=== PATIENT | female | born 1970 | race Caucasian/White ===

== ENCOUNTER 2022-03-10 03:54 | Inpatient (IN) | payer BC ==
[~2022-03-10] VITALS: Ht 157.5 cm; Wt 90.7 kg
--- NOTE | 2022-03-10 04:20 | NUR ---
Dr. Burrows at bedside. MSE in progress.
[2022-03-10] MEDS ORDERED: ONDANSETRON 4 MG/2 ML VIAL ONE ×3 (04:41→09:46)
[2022-03-10] MEDS ORDERED: HYDROMORPHONE 1 MG/1 ML DISP.SYRIN ONE ×2 (04:42→07:53)
[2022-03-10] MEDS ORDERED: HYDROMORPHONE 1 MG/1 ML DISP.SYRIN IV ONE ×2 (04:45→07:15)
[2022-03-10] MEDS ORDERED: IV NORMAL SALINE 1000 ML BAG IV ONE (04:45)
[2022-03-10] MEDS ORDERED: ONDANSETRON 4 MG/2 ML VIAL IV ONE ×2 (04:45→09:45)
[2022-03-10 05:10] LABS: HEMATOCRIT 28.9 % (31.2-41.9); MEAN CORPUSCULAR HEMOGLOBIN 28.7 uug (24.7-32.8); MEAN CORPUSCULAR VOLUME 88.8 fL (75.5-95.3); PLATELET COUNT (AUTO) 321 K/uL (179-408)
[2022-03-10 05:12] LABS: CREATININE 1.4 mg/dL (0.6-1.3); POTASSIUM 4.3 mmol/L (3.5-5.1)
[2022-03-10 05:19] LABS: BILIRUBIN,DIRECT 0.5 mg/dL (0.0-0.2); BILIRUBIN,TOTAL 1.1 mg/dL (0.2-1.0); TOTAL PROTEIN, SERUM 7.9 g/dL (6.4-8.2)
[2022-03-10] MEDS ORDERED: IOHEXOL 300MG/ML 100 ML INFUS..BTL ONE (05:36)
[2022-03-10] MEDS ORDERED: IV NORMAL SALINE 0 ML IV ONE (05:36)
[2022-03-10] MEDS ORDERED: SWABABLE VALVE TRANSFER SET EA MC ONE (05:36)
[2022-03-10] MEDS ORDERED: PIPERACILLIN SODIUM/TAZOBACTAM 3.375 G in IV DEXTROSE 5% 50 ML IV ONE (06:15)
[2022-03-10] MEDS ORDERED: PIPERACILLIN/TAZOBACTAM/D5W 50 ML IV ONE ×2 (06:19→14:45)
--- NOTE | 2022-03-10 07:05 | NUR ---
Report given to Haven HAIDER.
[2022-03-10 08:31] LABS: IRON, SERUM 13 ug/dL (50-175)
[2022-03-10] MEDS ORDERED: ACETAMINOPHEN 325 MG TABLET PO PRN (10:00)
[2022-03-10] MEDS ORDERED: MAGNESIUM HYDROXIDE 30 ML LIQUID UDC PO PRN (10:00)
[2022-03-10] MEDS ORDERED: ONDANSETRON 4 MG/2 ML VIAL IV PRN (10:00)
[2022-03-10] MEDS ORDERED: HYDROMORPHONE 2 MG/1 ML DISP.SYRIN IV PRN (10:00)
[2022-03-10] MEDS ORDERED: IV NS 1000 ML 1,000 ML IV PRN (10:00)
[2022-03-10] MEDS ORDERED: REMEDY ESSENTIAL ZINC PASTE 113 GM TP PRN (10:00)
[2022-03-10] MEDS ORDERED: IV NS 1000 ML 1,000 ML IV ONE (11:15)
[2022-03-10] MEDS ORDERED: PIPERACILLIN SODIUM/TAZOBACTAM 3.375 G in IV DEXTROSE 5% 50 ML IV SCH (12:00)
[2022-03-10 14:07] LABS: *BLOOD, URINE NEGATIVE (NEGATIVE); *CLARITY,URINE CLEAR (CLEAR); *COLOR,URINE YELLOW (YELLOW); *KETONES,URINE 1+ (NEGATIVE); *UROBILINOGEN,URINE 0.2 E.U./dl (NORMAL); LEUKOCYTE ESTERASE ,URINE 1+ (NEGATIVE); NITRITE, URINE NEGATIVE (NEGATIVE); PH,URINE 5.5 (5.0-8.0); UGLUCOSE NEGATIVE (NEGATIVE)
[2022-03-10 14:09] LABS: *BILIRUBIN,URIN 1+ (NEGATIVE)
[2022-03-10 14:31] LABS: BACTERIA,URINE FEW /HPF (NONE SEEN)
[2022-03-10 14:32] LABS: RBC,URINE 0-3 /HPF (0-3); SQUAMOUS EPITHELIAL CELL,UR MODERATE /HPF (NONE SEEN)
[2022-03-10 14:33] LABS: URIC ACID CRYSTALS,URINE MODERATE /HPF (NONE SEEN)
[2022-03-10] MEDS: PIPERACILLIN SODIUM/TAZOBACTAM 3.375 G in IV DEXTROSE 5% 100 ML IV SCH ×2 (14:47→21:15)
--- NOTE | 2022-03-10 17:49 | NUR ---
Report was given to Roxana at 15:45 and patient was escorted up to room accompanied by her mother. Patient alert and orientated, able to verablized needs and no complained of pain at time of transfer.
[2022-03-10] MEDS: HYDROMORPHONE 2 MG/1 ML DISP.SYRIN IV PRN (19:28)
[2022-03-10 20:53] VITALS: BP 110/60
[2022-03-11] VITALS (8 sets, daily range): BP systolic 90–131; BP diastolic 42–65
[2022-03-11] MEDS: HYDROMORPHONE 2 MG/1 ML DISP.SYRIN IV PRN (01:31)
[2022-03-11] MEDS: PIPERACILLIN SODIUM/TAZOBACTAM 3.375 G in IV DEXTROSE 5% 100 ML IV SCH ×3 (05:06→21:35)
[2022-03-11] MEDS ORDERED: HYDROMORPHONE 1 MG/1 ML DISP.SYRIN IV PRN (06:30)
[2022-03-11 07:31] LABS: HEMATOCRIT 27.1 % (31.2-41.9); MEAN CORPUSCULAR VOLUME 89.4 fL (75.5-95.3); PLATELET COUNT (AUTO) 348 K/uL (179-408)
[2022-03-11] MEDS ORDERED: BUPIVACAINE/EPI PF 0.25% 10 ML VIAL IJ ONE ×2 (07:44→14:58)
[2022-03-11] MEDS ORDERED: LIDOCAINE HCL 1% 20 ML VIAL ONE (07:45)
[2022-03-11] MEDS ORDERED: BACITRACIN ZINC OINT 15 GM TUBE ONE (07:46)
[2022-03-11] MEDS ORDERED: FENTANYL CITRATE 100 MCG/2 ML AMPUL ONE (07:54)
[2022-03-11] MEDS ORDERED: MIDAZOLAM HCL 2 MG/2 ML VIAL ONE (07:54)
[2022-03-11] MEDS ORDERED: HYDROMORPHONE 2 MG/1 ML DISP.SYRIN ONE (07:54)
[2022-03-11 07:55] LABS: BILIRUBIN,TOTAL 0.7 mg/dL (0.2-1.0); CREATININE 1.7 mg/dL (0.6-1.3); MAGNESIUM 1.9 mg/dL (1.8-2.4); POTASSIUM 4.6 mmol/L (3.5-5.1); TOTAL PROTEIN, SERUM 7.6 g/dL (6.4-8.2)
[2022-03-11] MEDS ORDERED: ROCURONIUM BROMIDE 50 MG/5 ML VIAL ONE (07:55)
[2022-03-11] MEDS: PANTOPRAZOLE SODIUM 40 MG VIAL IV SCH (09:00)
--- NOTE | 2022-03-11 10:02 | NUR ---
down for surgery 0813
[2022-03-11] MEDS ORDERED: SEVOFLURANE 250 ML BOTTLE IH ONE (10:36)
[2022-03-11] MEDS ORDERED: METOCLOPRAMIDE HCL 10 MG/2 ML VIAL IV ONE (10:36)
[2022-03-11] MEDS ORDERED: PROPOFOL 200 MG/20 ML BOTTLE IV ONE (10:36)
[2022-03-11] MEDS ORDERED: NEOSTIGMINE METHYLSULFATE 10 MG/10 ML VIAL IM ONE (10:36)
[2022-03-11] MEDS ORDERED: CEFAZOLIN 1 G VIAL IM ONE (10:36)
[2022-03-11] MEDS ORDERED: ONDANSETRON 4 MG/2 ML VIAL IV ONE (10:36)
[2022-03-11] MEDS ORDERED: GLYCOPYRROLATE 0.2 MG/ML VIAL IJ ONE (10:36)
[2022-03-11] MEDS ORDERED: LIDOCAINE-MPF 2% 5 ML VIAL IJ ONE (10:36)
[2022-03-11] MEDS ORDERED: DEXAMETHASONE SOD PHOSPHATE 4 MG INJ IV ONE (10:36)
--- NOTE | 2022-03-11 12:01 | NUR ---
returned back from surgery no c/o pain rates pain 2/10 at this time. GAEL drain and drsg in place with min serous drainage 10ml at this time. laproscopic inserstion site at umbilical covered with bandaid. resting quietly with family at bedside
[2022-03-11] MEDS ORDERED: IV LACTATED RINGERS SOLUTION 1,000 ML IV PRN (12:45)
[2022-03-11] MEDS ORDERED: SIMV5TAB59 PO (13:01)
[2022-03-11] MEDS ORDERED: SPIR50TA5 PO (13:01)
[2022-03-11] MEDS ORDERED: ANAS1TAB50 PO (13:01)
[2022-03-11] MEDS ORDERED: LISI10TA29 PO (13:01)
[2022-03-11] MEDS ORDERED: HYDROCODONE/APAP 10-325 MG TABLET PO PRN (14:45)
[2022-03-11] MEDS: SIMVASTATIN 10 MG TABLET PO SCH (21:31)
[2022-03-11] MEDS: HYDROMORPHONE 1 MG/1 ML DISP.SYRIN IV PRN (21:32)
[2022-03-12 04:31] VITALS: BP 109/67
--- NOTE | 2022-03-12 05:32 | NUR ---
SHIFT NOTE; RECEIVED PT UP IN BED NO SIGNS OF RESPIRATORY DISTRESS NOTED PT WAS GIVEN MEDICATION ORDERED NO SIGNS OF NO ADVERSE REACTION FROM MEDICATION. DISTRESS NOTED. PT ABD DRESSING DRY AND INTACT WILL CONTINUE TO MONITOR FOR SAFETY AND FALLS.
[2022-03-12] MEDS: PIPERACILLIN SODIUM/TAZOBACTAM 3.375 G in IV DEXTROSE 5% 100 ML IV SCH ×3 (06:14→22:11)
[2022-03-12 07:29] LABS: MEAN CORPUSCULAR HEMOGLOBIN 29.1 uug (24.7-32.8); MEAN CORPUSCULAR VOLUME 89.4 fL (75.5-95.3); PLATELET COUNT (AUTO) 345 K/uL (179-408)
[2022-03-12 07:39] LABS: CREATININE 1.4 mg/dL (0.6-1.3); POTASSIUM 4.3 mmol/L (3.5-5.1)
[2022-03-12] MEDS: PANTOPRAZOLE SODIUM 40 MG VIAL IV SCH (09:10)
[2022-03-12] MEDS: LISINOPRIL 10 MG TABLET PO SCH (09:11)
[2022-03-12] MEDS: HYDROMORPHONE 1 MG/1 ML DISP.SYRIN IV PRN ×3 (09:30→21:07)
[2022-03-12] MEDS: ANASTROZOLE 1 MG TABLET PO SCH (09:43)
[2022-03-12 11:52] VITALS: BP 105/62
[2022-03-12 16:06] VITALS: BP 108/61
--- NOTE | 2022-03-12 18:24 | NUR ---
pt. walked with assist. ICE pack provided for comfort. GAEL drain emptied and 25cc drainage noted. Pt. is comfortable and resting at this time in her bed. No c/o pain at this time. she has family member at her bed side. compliance with the care given.
[2022-03-12] MEDS: IV NS 1000 ML 1,000 ML IV PRN (19:39)
[2022-03-12 20:20] VITALS: BP 132/63
[2022-03-12] MEDS: SIMVASTATIN 10 MG TABLET PO SCH (21:07)
[2022-03-13] MEDS: HYDROMORPHONE 1 MG/1 ML DISP.SYRIN IV PRN ×2 (01:19→05:30)
[2022-03-13 04:28] VITALS: BP 135/61
[2022-03-13] MEDS: PIPERACILLIN SODIUM/TAZOBACTAM 3.375 G in IV DEXTROSE 5% 100 ML IV SCH ×3 (05:35→21:04)
[2022-03-13] MEDS: IV NS 1000 ML 1,000 ML IV PRN ×2 (05:43→23:00)
--- NOTE | 2022-03-13 06:10 | NUR ---
Patient seen by Dr. Messer with new meds and labs order noted and carried out. Patient awake alert and oriented x 4, in no acute distress. GAEL drain intact draining to serosanguineous discharge amounting to 20cc at end of shift.
[2022-03-13 06:44] LABS: HEMATOCRIT 24.2 % (31.2-41.9); MEAN CORPUSCULAR HEMOGLOBIN 29.7 uug (24.7-32.8); MEAN CORPUSCULAR VOLUME 88.9 fL (75.5-95.3); PLATELET COUNT (AUTO) 378 K/uL (179-408)
[2022-03-13] MEDS ORDERED: IBUPROFEN 800 MG TABLET PO PRN (07:00)
[2022-03-13] MEDS ORDERED: GABAPENTIN 300 MG CAPSULE PO SCH (07:00)
[2022-03-13] MEDS ORDERED: ACETAMINOPHEN 325 MG TABLET PO PRN (07:00)
[2022-03-13 07:14] LABS: CREATININE 1.2 mg/dL (0.6-1.3); POTASSIUM 4.1 mmol/L (3.5-5.1)
[2022-03-13] MEDS: MAGNESIUM SULFATE/D5W 100 ML IV SCH ×3 (07:57→10:14)
[2022-03-13] MEDS: ACETAMINOPHEN 325 MG TABLET PO SCH ×3 (07:57→22:11)
[2022-03-13] MEDS: GABAPENTIN 300 MG CAPSULE PO SCH ×3 (07:58→22:10)
[2022-03-13] MEDS: IBUPROFEN 800 MG TABLET PO SCH ×3 (07:58→22:10)
[2022-03-13] MEDS: PANTOPRAZOLE SODIUM 40 MG VIAL IV SCH (08:02)
[2022-03-13] MEDS: ANASTROZOLE 1 MG TABLET PO SCH (08:02)
[2022-03-13] MEDS: LISINOPRIL 10 MG TABLET PO SCH (08:03)
[2022-03-13 08:52] LABS: BILIRUBIN,DIRECT 0.3 mg/dL (0.0-0.2); BILIRUBIN,TOTAL 0.7 mg/dL (0.2-1.0); MAGNESIUM 1.3 mg/dL (1.8-2.4); PHOSPHOROUS 2.6 mg/dL (2.5-4.9); TOTAL PROTEIN, SERUM 6.5 g/dL (6.4-8.2)
[2022-03-13 11:21] VITALS: BP 147/63
[2022-03-13 16:39] VITALS: BP 141/40
--- NOTE | 2022-03-13 18:29 | NUR ---
patient is alert, oriented x4, ambulated in hallway, GAEL drainage intact, 50ml serous drainage noted during day shift, no acute distress noted
--- NOTE | 2022-03-13 19:30 | NUR ---
received patient in bed alert oriented, no sob no chest pain, no complain of pain at this time, family at bedside, GAEL in place draining with serosangeneous fluids in small amount, cont to monitor.
[2022-03-13 20:00] VITALS: BP 108/60
[2022-03-13] MEDS: SIMVASTATIN 10 MG TABLET PO SCH (21:03)
[2022-03-14] VITALS (9 sets, daily range): BP systolic 101–148; BP diastolic 51–75
--- NOTE | 2022-03-14 | NUR ---
Patient alert oriented, assisted with toileting, patient no BM for 3 days per AM RN, offered MOM and patient took it. Patient has small BM at this time, emptied GAEL with 20cc serosanguineous, no complain of pain, cont to monitor.
[2022-03-14] MEDS: IBUPROFEN 800 MG TABLET PO SCH ×3 (05:50→21:51)
[2022-03-14] MEDS: PIPERACILLIN SODIUM/TAZOBACTAM 3.375 G in IV DEXTROSE 5% 100 ML IV SCH ×3 (05:50→21:58)
[2022-03-14] MEDS: GABAPENTIN 300 MG CAPSULE PO SCH ×3 (05:50→21:57)
[2022-03-14] MEDS: ACETAMINOPHEN 325 MG TABLET PO SCH ×3 (05:50→21:51)
[2022-03-14] MEDS: IV NS 1000 ML 1,000 ML IV PRN ×2 (06:25→19:00)
[2022-03-14 07:07] LABS: HEMATOCRIT 21.9 % (31.2-41.9); MEAN CORPUSCULAR HEMOGLOBIN 29.2 uug (24.7-32.8); MEAN CORPUSCULAR VOLUME 87.1 fL (75.5-95.3); PLATELET COUNT (AUTO) 346 K/uL (179-408)
--- NOTE | 2022-03-14 08:00 | NUR ---
resting in bed, awake alert and oriented,denies of pain, AGEL draining serosanguineous drainage-abdominal dsg dry and intact, states has BM large amount early this morning, explained plan of care- verbalized understanding, no n/v noted, up to BR with helkp- voided qs, safety measures maintained, call light within reach
[2022-03-14] MEDS: ANASTROZOLE 1 MG TABLET PO SCH (08:43)
[2022-03-14] MEDS: PANTOPRAZOLE SODIUM 40 MG VIAL IV SCH ×2 (08:43→09:00)
[2022-03-14] MEDS: LISINOPRIL 10 MG TABLET PO SCH (08:43)
[2022-03-14] MEDS: MIRALAX 17 GM POWD.PACK PO SCH (08:44)
--- NOTE | 2022-03-14 11:45 | NUR ---
seen by Houston Gunn, diet advanced to soft diet, still has poor appetite, will continue to monitor, family at bedside, will receive i un it of PRBC -consent signed by pt
--- NOTE | 2022-03-14 12:00 | NUR ---
IV leaking- pt is a hard stick, midline IV ordered- nsg supervisor spinning notified
[2022-03-14] MEDS ORDERED: LIDOCAINE HCL 1% 20 ML VIAL IJ PRN (13:45)
--- NOTE | 2022-03-14 14:00 | NUR ---
Zosyn IVPB not given- no access at this time- midline to be placed followed by blood transfusion
--- NOTE | 2022-03-14 15:30 | NUR ---
midline placed by midlidline nurse on the left upper arm-tolerated well
--- NOTE | 2022-03-14 15:45 | NUR ---
blood transfusion fo one unit PRBC started- vs staken- will monitor for any reactions- pt been educated on s/s of bleed transfusion reaction- verbalized understanding
--- NOTE | 2022-03-14 16:00 | NUR ---
BT infusing well- no reactions noted
--- NOTE | 2022-03-14 18:00 | NUR ---
states feels good GAEL output 60ml serosanguineous drainage, BT infusing well without problem, all needs attended and met, family at bedside, call light within reach
--- NOTE | 2022-03-14 19:20 | NUR ---
blood transfusion completed, VSS, no reaction noted, endorsed to next shift
--- NOTE | 2022-03-14 20:45 | NUR ---
Patient alert oriented, no sob no chest pain, no complain of pain, sister at bedside, GAEL draining with clear yellow color fluids in small amount, abdominal dressing intact, cont on abx with adverse reaction noted, cont to monitor.
[2022-03-14] MEDS: SIMVASTATIN 10 MG TABLET PO SCH (21:51)
--- NOTE | 2022-03-15 00:36 | NUR ---
Gave hand on report to Anamika HAIDER.
[2022-03-15 04:00] VITALS: BP 110/53
[2022-03-15] MEDS: PIPERACILLIN SODIUM/TAZOBACTAM 3.375 G in IV DEXTROSE 5% 100 ML IV SCH ×2 (06:31→14:05)
[2022-03-15] MEDS: GABAPENTIN 300 MG CAPSULE PO SCH ×2 (06:31→14:07)
[2022-03-15] MEDS: ACETAMINOPHEN 325 MG TABLET PO SCH ×2 (06:31→14:07)
[2022-03-15] MEDS: IBUPROFEN 800 MG TABLET PO SCH ×2 (06:31→14:08)
[2022-03-15 07:11] LABS: HEMATOCRIT 26.1 % (31.2-41.9); MEAN CORPUSCULAR HEMOGLOBIN 29.6 uug (24.7-32.8); MEAN CORPUSCULAR VOLUME 88.2 fL (75.5-95.3); PLATELET COUNT (AUTO) 365 K/uL (179-408)
[2022-03-15 07:23] LABS: CREATININE 1.6 mg/dL (0.6-1.3); MAGNESIUM 2.1 mg/dL (1.8-2.4); PHOSPHOROUS 3.6 mg/dL (2.5-4.9); POTASSIUM 4.1 mmol/L (3.5-5.1)
--- NOTE | 2022-03-15 08:00 | NUR ---
resting in bed, no distress noted, denies of any n/v, up and about in the room, needs attended, call light within reach
[2022-03-15] MEDS: PANTOPRAZOLE SODIUM 40 MG VIAL IV SCH (08:43)
[2022-03-15] MEDS: ANASTROZOLE 1 MG TABLET PO SCH (08:44)
[2022-03-15] MEDS: LISINOPRIL 10 MG TABLET PO SCH (08:47)
--- NOTE | 2022-03-15 11:00 | NUR ---
seen by Houston Gunn and spoke to family and pt intensively - pt to go home after clearance from surgery, abdominal dsg dry and intact- GAEL draining and bulb compressed for suction- draining serosanguineous drainage, ambulated in the [address] way after
[2022-03-15 12:10] VITALS: BP 158/84
[2022-03-15] MEDS: ENSURE ENLIVE (VAN) 240 ML LIQUID PO SCH ×2 (13:25→18:18)
[2022-03-15] MEDS: MIRALAX 17 GM POWD.PACK PO SCH (13:26)
[2022-03-15 15:26] VITALS: BP 147/44
[2022-03-15] MEDS ORDERED: IBUP-1957 PO (15:48)
[2022-03-15] MEDS ORDERED: CIPR-262 PO (15:48)
[2022-03-15] MEDS ORDERED: GABA300C PO (15:48)
[2022-03-15] MEDS ORDERED: ACET325T53 PO (15:48)
--- NOTE | 2022-03-15 17:35 | NUR ---
discharge instructions given, verbalized understanding, family at bedside
--- NOTE | 2022-03-15 19:07 | NUR ---
midline removed- no swelling/redness noted on sir, GAEL in place and drained total of 60ml serosanguineous drainage, escorted to car per w/c in stable condition under family's care,belongings with her
== END 2022-03-15 19:10 | disposition home or self-care (01) | DRG 417 ==
LOC: ER 03:57 → MEDSURG3 17:13
PROVIDERS: ADMIT Nurse Practitioner Acute Care; ATTEND Registered Nurse
PROC: 0FT44ZZ Resection of Gallbladder, Percutaneous Endoscopic Approach (ICD-10-PCS; principal; 2022-03-11)
PROC: 0FB14ZX Excision of Right Lobe Liver, Percutaneous Endoscopic Approach, Diagnostic (ICD-10-PCS; 2022-03-11)
PROC: 0DNU3ZZ Release Omentum, Percutaneous Approach (ICD-10-PCS; 2022-03-11)
PROC: 05H633Z Insertion of Infusion Device into Left Subclavian Vein, Percutaneous Approach (ICD-10-PCS; 2022-03-14)
PROC: B547ZZA Ultrasonography of Left Subclavian Vein, Guidance (ICD-10-PCS; 2022-03-14)
PROC: 30233N1 Transfusion of Nonautologous Red Blood Cells into Peripheral Vein, Percutaneous Approach (ICD-10-PCS; 2022-03-14)
DX: K80.12 Calculus of gallbladder with acute and chronic cholecystitis without obstruction (principal); N17.0 Acute kidney failure with tubular necrosis; C78.7 Secondary malignant neoplasm of liver and intrahepatic bile duct; E87.1 Hypo-osmolality and hyponatremia; D62 Acute posthemorrhagic anemia; E88.09 Other disorders of plasma-protein metabolism, not elsewhere classified; Z85.3 Personal history of malignant neoplasm of breast; Z92.3 Personal history of irradiation; I10 Essential (primary) hypertension; E78.5 Hyperlipidemia, unspecified; D72.829 Elevated white blood cell count, unspecified; R74.01 Elevation of levels of liver transaminase levels; D63.8 Anemia in other chronic diseases classified elsewhere; E66.9 Obesity, unspecified; Z68.36 Body mass index [BMI] 36.0-36.9, adult; K66.0 Peritoneal adhesions (postprocedural) (postinfection)
CPT/HCPCS: 36415; 70030-TC; 71045; 78580; 83550; 83690; 83735; 84100; 85025; 86850; 86900; 86901; 86920; 87086; 93005; A4663; A9540; C9113; G0378; J0690; J1100; J1170; J2250; J2405; J2543; J2765; J3010; J3475; J3490; J7040; P9016; Q9967